=== PATIENT | female | born 1965 | race Caucasian/White ===

== ENCOUNTER 2020-02-11 06:36 | Inpatient (IN) | payer OTHER, SELFPAY ==
[2020-02-11] VITALS (68 sets, daily range): BP systolic 108–215; BP diastolic 69–121; PULSE 58–105; RESP 13–31; TEMP 36.7–36.8; O2SAT 94–100; BMI 54.8
--- NOTE | 2020-02-11 06:44 | XACV_ITS ---
Ht: 165 cm Wt: 131 kg BSA: 2.52 m2 Gender: Female : 1965 Any Known Allergies: Asprin Exam Priority: Routine Procedure(s): Procedure Description: Diagnostic procedure Procedure Description: Left Heart Catheterization Procedure Description: Right Heart Catheterization Procedure Description: Primary percutaneous coronary intervention of mid RCA Diagnostic Cath Status: Emergency Diagnostic Findings * LM has minor luminal irregularities. * CX has 0% stenosis. It gives rise to a large OM branch which has no significant stenosis.. * LAD arises from left main artery. pLAD: Mild 20% stenosis, KALEB: 3 flow. It bifurcates into a dual LAD system with medium- sized vessels. Luminal irregularities are noted.. * RCA arises from right coronary cusp. It is a large sized vessel. Mid Right Coronary Artery: Severe 80% ulcerated stenosis, KALEB: 2 flow. This is the culprit vessel for ST elevation AL.. * Ramus intermedius artery: It is a medium sized vessel. No significant stenosis is noted.. * Coronary angiography shows right dominance. PCI Status: Emergency PCI Indication: STEMI - Immediate PCI for STEMI Interventional Findings * IV heparin was administered to maintain an ACT above 250 seconds. We engaged RCA using 6 Upper Sorbian JR4 guide catheter. Using a 0.014 cougar guidewire we crossed the mid RCA ulcerated lesion and parked the wire in PDA. Mid RCA stenosis was predilated using a 3.0 x 15 mm semicompliant balloon. This was followed by placement of 4.0 x 18 mm resolute Stephen drug-eluting stent. We postdilated the stent using 4.5 x 8 mm NC balloon. At this time final angiogram was performed which showed excellent stent expansion, no residual stenosis and KALEB-3 flow. Hemostasis was obtained using TR band. Guidewire and guide catheter were removed. Patient left the Society Reporter in stable condition.. * Mid Right Coronary Artery: 80% stenosis treated with TREK 3.00X15 RX BALLOON, YULIET Bass STEPHEN 4.0X18 RADHA, and YULIET MCINTYRE EUPHORA RX [id number] BALLOON. 0% residual stenosis, KALEB: 3 flow. Conclusions 1. There is severe coronary artery disease with ulcerated mid RCA lesion that was culprit for inferior ST elevation AL.. 2. Mid Right Coronary Artery was treated with two Balloon and Drug Eluting Stent. Recommendations * Admit to CSU. * Continue aspirin and Plavix for at least 1 year. * High intensity statin therapy. * Beta-keily and lisinopril. * Order echocardiogram. Interventional RX Recommendation: PCI w/o planned CABG Diagnostic RX Recommendation: PCI w/o planned CABG Anticoagulation: Heparin Pressures Phase:Rest AO : 145 / 86 ( 111 ) @ 1:00:00 AM 143 / 80 ( 106 ) @ 1:05:00 AM 151 / 78 ( 108 ) @ 1:17:00 AM / ( -41 ) @ 2:23:00 AM Clinical Evaluation EBL: 5mL-10mL Procedural Details Pre-Procedure Time Out. Identified patient by full name and date of as verbalized by the patient/guarantor. Does the consent match the physician's order: Yes. Accurate & Complete Informed Consent: Yes. Inpatient/Outpatient History & Physical on Chart: Yes. If H&P is completed, is and addenduem needed: N/A Emergent; Informed Consent not obtained due to time critical life threat; If yes, is the addendum complete: N/A Emergent; Informed Consent not obtained due to time critical life threat. Relevant Radiology Images available: N/A Emergent; Informed Consent not obtained due to time critical life threat. Pre-op teaching completed and patient verbalized understanding. The risks, benefits, and alternatives of sedation and/or procedure were discussed by physician. The patient agrees to continue. Procedure started. Correct patient, site and procedure confirmed by cath team. Current diagnosis: STEMI. PERRLA. Strong, equal hand sieve repairer bilaterally. Lungs clear x 5 lobes. Society Reporter Indications: ACS <= 24 hours. Chest Pain Symptom Assessment: Typical Angina Symptoms. IV Site on Arrival: 20 gauge in the right hand. IV Fluids: 0.9% NaCl at KVO. 0 mL infused prior to photonic laboratory technician. Oxygen started at 2liters/min via nasal canula. right groin was prepped with chloroprep then draped in the usual sterile fashion. right radial was prepped with chloroprep then draped in the usual sterile fashion. IV Site on Arrival: 20 gauge in the left forearm. Baseline sample Acquired. HR: 60 BPM. Physician notified. Equipment: 5F - Radial. Cardiac Cath Pack. ACIST Manifold Kit Model BT 2000. Heparinized Saline (2 units/mL), 1000 mL bag. Physician arrived. Physician scrubbed in. Immediate Pre-Procedure Time Out. Correct Patient: Yes; Correct Procedure: Yes; Correct Site: Yes; Correct Patient Position: Yes; Correct Supplies: Yes; Dried Flammable Prep: Yes; Blood Products Available: N/A Emergent; Informed Consent not obtained due to time critical life threat;. Lidocaine 1% infiltrated to the right radial. Arterial access obtained. A 5 welsh TIG catheter in over wire. ERIK Cooper was relieved by Lorin Scott RRT as monitoring person. Multiple views taken of right coronary artery. Catheter redirected to the LCA. Multiple views taken of left coronary artery. Catheter removed over the exchange wire. Inventory is CRD 6FR JR 4 GUIDE 100cm. 6 welsh JR 4 guide catheter was inserted over the wire. Man guidewire was advanced through the guide catheter to lesion in the mid RCA. Inflation number : 1 A AB TREK 3.00X15 RX BALLOON was prepped and advanced across the Mid RCA , then inflated to 12 KRISS for 0:24 seconds. Balloon out. Inflation Number : 2 A YULIET R STEPHEN 4.0X18 RADHA -Lot Number# [id number] exp date 10/10/2021 was prepped and advanced across the Mid RCA. The stent was deployed at 14 KRISS for 0:25 seconds. Stent balloon out over wire. Results checked. Inflation number : 3 A YULIET NC EUPHORA RX [id number] BALLOON was prepped and advanced across the Mid RCA , then inflated to 12 KRISS for 0:10 seconds. Inflation number: 4 The MDSebastián NC EUPHORA RX [id number] BALLOON was reinflated across the Mid RCA, to 12 KRISS for 0:14 seconds. Balloon out. Results checked. Wire out. Guide catheter out. ACT drawn. Results 220 seconds. Therapeutic limits - pre-heparin administration 90-150 seconds and monitoring heparin during a vascular procedure >250 seconds. Physician scrubbed out. A TR Band was successful obtaining hemostatsis at the Right Radial artery insertion site. TR band placed. Hemostasis obtained. Post Procedure: Pulses reassessed and unchanged. PERRLA. Strong, equal hand sieve repairer bilaterally. No VTE prophylaxis required. Contrast type used: Omnipaque 300 mgI/mL, 500 mL bottle. [facility] Clinical Fraility Score: 2: Well. PCI Indication: STEMI. Total IV fluids: 100 mL. Post-op diagnosis: stemi. Complications: none. Medication's Wasted: Lidocaine 1% = 18 mL. Medication's Wasted: Nitro = 49.8 mg. Medication's Wasted: Heparin = 2000 mg. Estimated blood loss: 5mL-10mL. Room assigned but unavailable at this time, It is in the procees of cleaning. Patient aware and kept comfortable and monitored during transition. Vital chart was stopped. Procedure completed. Patient transferred by wheelchair to 1st floor. Access Site Site: Right Radial artery Sheath Size: 6 Fr Hemostasis Method: TR Band Hemostasis Success: Successful Procedure Medications Start: 6:51 AM Stop: 6:51 AM Medication: Versed Amount: 1 mg Route: I.V. Start: 6:51 AM Stop: 6:51 AM Medication: Fentanyl Amount: 50 mcg Start: 6:55 AM Stop: 6:55 AM Medication: Nitrogylcerin Amount: 200 mcg Route: I.A. Start: 7:05 AM Stop: 7:05 AM Medication: Heparin Amount: 8000 units Route: I.V. Start: 7:07 AM Stop: 7:07 AM Medication: Versed Amount: 1 mg Route: I.V. Start: 7:07 AM Stop: 7:07 AM Medication: Fentanyl Amount: 50 mcg Route: I.V. Start: 7:28 AM Stop: 7:28 AM Medication: Heparin Amount: 1000 units Route: I.V. I, the attending physician, have reviewed and verified all procedure medications. Yes, all medications given per verbal order History/Risk Factors Hypertension: No Dyslipidemia: No Peripheral Arterial Disease (PAD): No Myocardial Infarction (AL): No Obesity: Yes Renal Disease: No Prior Interventions PCI: No CABG: No Valve Surgery: No Report Signatures Finalized by Jamin Toscano MD on 02/11/2020 12:22 PM
--- NOTE | 2020-02-11 07:01 | W.ED.CHESTPA ---
HPI - Chest Pain General: Chief Complaint: Chest Pain Stated Complaint: stemi Time Seen by Provider: 02/11/20 06:43 History of Present Illness: HPI narrative: Patient was a STEMI transfer from [place]. Arrived here all the preparatory work had been done been given heparin and Plavix. Nursing staff is sent to the patient he was in the ER very briefly I did not see the patient. Dr. Kelly had been called by nursing [place] staff and had excepted was taken directly to the Photograph Retoucher after extremely brief stop here in the emergency room. Course Vital Signs: Vital signs: Vital Signs Temperature 98.2 F 02/11/20 06:41 Pulse Rate 105 H 02/11/20 06:49 Respiratory Rate 18 02/11/20 06:49 Blood Pressure 148/104 02/11/20 06:49 Pulse Oximetry 99 02/11/20 06:49 Coding Level of Care Code ED Tank Builder And Erector for Hayes Cardenas
--- NOTE | 2020-02-11 07:42 | XRR_ITS ---
PROCEDURE INFORMATION: Exam: XR Chest, 1 View Exam date and time: 02/11/2020 9:28 AM Age: 55 years old Clinical indication: Chest pain; Additional info: Post stemi TECHNIQUE: Imaging protocol: XR of the chest Views: 1 view. COMPARISON: CR Chest 1 [place] [id number] 07/25/2013 7:45 PM FINDINGS: Lungs: See Pleural space finding. Pleural space: Subtle atelectasis left costophrenic angle. Lungs are otherwise well aerated. Heart/Mediastinum: Unremarkable. No cardiomegaly. Bones/joints: Unremarkable. XR/XR chest 1V [id number] IMPRESSION: Subtle atelectasis left costophrenic angle. Lungs are otherwise well aerated.
--- NOTE | 2020-02-11 07:48 | USCV_ITS ---
Aubrie Seay Age: 55 Gender: F : 1965 Exam Date: 02/11/2020 09:40 Ordering Phys: Jamin Toscano M.D ([email or web address]) Technologist: Yanni Ramey [place] [facility] [place] Indication: POST STEMI BP: 160 / 84 HR: 62 Rhythm: Sinus Technical Quality: Suboptimal MEASUREMENTS (Male / Female) Normal Values 2D ECHO LV Diastolic Diameter PLAX 3.2 cm 4.2 - 5.9 / 3.9 - 5.3 cm LV Systolic Diameter PLAX 2.2 cm LV Chamber Size 3.9 cm IVS Diastolic Thickness 1.8 cm 0.6 - 1.0 / 0.6 - 0.9 cm IVS Systolic Thickness 1.7 cm LVPW Diastolic Thickness 0.7 cm 0.6 - 1.0 / 0.6 - 0.9 cm LVPW Systolic Thickness 1.0 cm RV Chamber Size 3.1 cm LVOT Diameter 2.0 cm LV Ejection Fraction 2D Teich 57.7 % LA Diameter 3.7 cm LA Width 2.4 cm LA Height 5.1 cm RA Width 3.2 cm RA Height 4.3 cm Aorta at Sinotubular Diameter 2.0 cm M-MODE LV Diastolic Diameter MM 5.8 cm 4.2 - 5.9 / 3.9 - 5.3 cm LV Systolic Diameter MM 3.7 cm LV Ejection Fraction MM Teich 64.0 % IVS Diastolic Thickness MM 1.1 cm 0.6 - 1.0 / 0.6 - 0.9 cm IVS Systolic Thickness MM 1.4 cm LVPW Diastolic Thickness MM 0.8 cm 0.6 - 1.0 / 0.6 - 0.9 cm LVPW Systolic Thickness MM 1.1 cm Aortic Annulus Diameter 3.1 cm LA Ao Ratio MM 1.2 MV E Point Septal Separation 0.4 cm DOPPLER AV Peak Velocity 124.0 cm/s LVOT Peak Velocity 97.0 cm/s AV Area Cont Eq vti 2.6 cm squared AV Area Cont Eq pk 2.4 cm squared MV Area PHT 5.0 cm squared Mitral E to A Ratio 1.1 MV E' Velocity 43.0 cm/s Mitral E to MV E' Ratio 8.8 Mitral E to LV E' Lateral Ratio 7.4 Mitral E to LV E' Septal Ratio 11.2 TV Peak E Velocity 41.0 cm/s Right Atrial Pressure 3.0 mmHg PV Peak Velocity 74.0 cm/s RV Acceleration Time 0.1 s RV Ejection Time 0.3 s RV AcT/ET 0.4 FINDINGS Left Ventricle Technically limited study. Normal left ventricular size and systolic function. Regional wall motion abnormalities cannot be assessed because of limited visualization. LVEF is 55 to 60%. Normal diastolic filling pattern. Right Ventricle The right ventricle is normal in size and function. Right Atrium The right atrium is normal in size. Left Atrium The left atrium is normal in size. Mitral Valve Structurally normal mitral valve without significant stenosis or prolapse. There is no mitral regurgitation. Aortic Valve Grossly normal. There is no significant aortic stenosis or regurgitation. Tricuspid Valve Grossly normal. No significant stenosis or regurgitation is noted. Insufficient TR jet to calculate RVSP. Pulmonic Valve Not well-visualized. Pericardium Normal pericardium without effusion. Aorta Normal ascending aorta dimension. CONCLUSIONS This is technically limited study LV systolic function is normal. Regional wall motion abnormalities cannot be assessed because of limited visualization. LVEF is 55 to 60%. Normal diastolic function. Valvular structures are not well visualized however no gross abnormalities. No comparison studies are available Jamin Toscano MD (Electronically Signed) Final Date: 11 February 2020 11:56 S
--- NOTE | 2020-02-11 07:50 | ECG_ITS ---
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 Measurements Intervals [place] Rate: 67 P: 134 MT: 147 QRS: -19 QRSD: 100 T: 136 QT: 381 QTc: 405 Interpretive Statements SINUS RHYTHM LOW QRS VOLTAGE IN EXTREMITY LEADS [QRS DEFLECTION < 0.5 mV IN LIMB LEADS] MARKED ST ELEVATION, CONSIDER INFERIOR INJURY [MARKED ST ELEVATION W/O NORMALLY INFLECTED T WAVE IN II/aVF] ACUTE OR No previous ECG available for comparison Electronically Signed On 02-11-2020 18:05:35 E TAILER by Jamin Toscano M.D. [email or web address]
--- NOTE | 2020-02-11 07:56 | PM.HP ---
Providers/Chief Complaint Admitting Physician: Jamin Toscano MD Primary Care Provider: Fabio Solitario Chief Complaint: stemi History of Present Illness Aubrie Seay is a 55 year old female with past medical history of hypertension who presented to [facility] emergency room in [place] with 3 to 4 hours of chest pain. EKG showed ST elevations in inferior leads. Patient was transferred for emergent angiogram and PCI to [facility]. According to patient she does not have any cardiac history. Last night at 1:30 AM she woke up with severe substernal chest pain. She says intensity was 10/10. It felt like pressure radiating to both arms. She went to the emergency room. Over time her chest pain improved however she kept having 5 to 6/10 intensity chest pain. She denies any chest pain in the past. Patient was given aspirin, Plavix and heparin bolus and was transferred to [facility]. We performed emergent coronary angiogram which showed severe ulcerated mid RCA 80% stenosis. This was culprit for inferior ST elevation DE. She underwent successful revascularization with drug-eluting stent x1. According to patient she had minor rash with aspirin in the remote past. She was loaded with aspirin last night and did not develop any reaction. Review of Systems Narrative: CONSTITUTIONAL: No fever chills weight loss or gain or night sweats. [] HEENT: Normocephalic, atraumatic.[] RESPIRATORY: No cough, sputum, hemoptysis or wheezing.[] CARDIOVASCULAR: Has chest pain, no PND, orthopnea, lower extremity edema, presyncope or syncope. [] GI: no nausea vomiting diarrhea. [] REMOTE SENSING TECHNICIAN: No numbness, tingling, weakness or loss of function in any part of the body. [] MUSCULOSKELETAL: No knee or joint pain or rashes. [] Medications/Allergies Home Medications Medication Instructions Recorded Confirmed Last Taken Type amoxicillin-pot clavulanate 1 tab PO Q12H 02/11/20 02/11/20 02/10/20 History chlorhexidine gluconate See Rx Instructions .ROUTE .COMPLEX 02/11/20 02/11/20 02/10/20 History coenzyme Q10 [CoQ-10] 100 mg PO QPM 02/11/20 02/11/20 Unknown History lisinopril-hydrochlorothiazide 1 tab PO QPM 02/11/20 02/11/20 Unknown History nebivolol [Bystolic] 5 mg PO QPM 02/11/20 02/11/20 Unknown History Allergies Allergy/AdvReac Type Severity Reaction Status Date / Time aspirin Allergy ALGY-Rash Verified 02/11/20 06:48 PFSH Acute PFSH: Medical History Hypertension Surgical History H/O total hysterectomy Family History Father CAD (coronary artery disease) Social History Smoking and tobacco status: never smoked Vitals/I&O/Wt Last Vital Signs Temp 98.2 F 02/11/20 06:41 Pulse 105 H 02/11/20 06:49 Resp 18 02/11/20 06:49 BP 148/104 02/11/20 06:49 Pulse Ox 99 02/11/20 06:49 Weight last 48 hrs Weight 340 lb Physical Exam Narrative: EXAM NARRATIVE: GENERAL: Patient is alert, awake and oriented x3. [] NECK: No jugular vein distension. [] HEENT: No cyanosis. No icterus. No pallor. [] HEART: Regular S1 and S2. No murmur, rub or gallop. [] LUNGS: Clear to auscultate bilaterally. [] ABDOMEN: Soft, nontender and nondistended. Positive bowel sounds. No guarding, rebound or tenderness. [] CENTRAL NERVOUS SYSTEM: Grossly nonfocal. [] EXTREMITIES: Lower extremities with no edema bilaterally. Pulses palpable in the lower extremities, both dorsalis pedis and posterior tibial. [] A&P Assessment and plan (1) ST elevation DE (STEMI): Status: Acute (2) Hypertension: Status: Acute Patient had acute inferior wall ST elevation DE. She underwent successful revascularization of mid RCA ulcerated stenosis with a drug-eluting times stent x1. Admit to CSU. Aspirin and Plavix for at least 1 year. Patient has documented allergy to aspirin which she mentions caused her to have minor rash in remote past. She had aspirin last night and has not developed any reaction to it. We will monitor her as inpatient. Order echocardiogram High intensity statin therapy Lisinopril and beta-keily. Attestations Medical Necessity Statement*: Care expected to cross 2 midnights. Patient presented with acute inferior wall ST elevation DE status post revascularization. Coding Level of Care Code Acute Junior Mechanical Engineer for Hayse Cardenas Diagnoses ST elevation DE (STEMI) I21.3 Hypertension I10
--- NOTE | 2020-02-11 08:30 | SUR.PHASEI ---
TO PHASE 1 Patient to CPRU pending CSU bed availablity. Assessments per flowsheets. Informed to call for needs.
--- NOTE | 2020-02-11 08:31 | SUR.PHASEI ---
CALL LIGHT Call light placed within reach.
--- NOTE | 2020-02-11 08:56 | SUR.PHASEI ---
IV heplocked at this time pending floor transfer.
[2020-02-11 09:08] LABS: Partial Thromboplastin Time 89.7 SECONDS (23.9-36.7)
--- NOTE | 2020-02-11 09:10 | SUR.PHASEI ---
Transfer Patient transferred to room 105 via wheel chair. Report to Naveen RN. No change in patient condition at this time.
--- NOTE | 2020-02-11 09:15 | PC.NURSE ---
Received pt from sugar laboratory assistant Pt is alert, oriented, not in distress. Reports of chest pain rated at 2/10 pain scale. TR band intact on right wrist with small bruise above the band. No hematoma, swelling, bleeding. radial pulse is palpable +3. Activity restrictions provided to pt regarding no lifting, pushing, pulling using right arm. call light within reach.
--- NOTE | 2020-02-11 11:05 | PC.NURSE ---
called pharmacy since pt is not in the pyxis-cannot pull her morning meds. will follow-up.
--- NOTE | 2020-02-11 11:35 | ECG_ITS ---
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 Measurements Intervals [place] Rate: 66 P: 9 ME: 154 QRS: -31 QRSD: 110 T: 47 QT: 406 QTc: 427 Interpretive Statements SINUS RHYTHM MARKED LEFT AXIS DEVIATION [QRS AXIS < -30] PATTERN CONSISTENT WITH PULMONARY DISEASE Compared to ECG 02/11/2020 06:40:04 Left-axis deviation now present Myocardial infarct finding no longer present ST (T wave) deviation still present Electronically Signed On 02-11-2020 17:59:50 REJOINER by Jamin Toscano M.D. [id number]
[2020-02-11] MEDS: lisinopril 10 mg Tablet PO (12:00)
[2020-02-11] MEDS: metoprolol tartrate 25 mg Tablet PO (12:00)
[2020-02-11] MEDS: atorvastatin 40 mg Tablet 80 MG PO (12:00)
--- NOTE | 2020-02-11 12:03 | PC.CHAP ---
Pastoral Care Encounter/Spiritual Assessment Type of Contact [] Declined pigskin trimmer visit [] Patient/Family/Request visit [] Outpatient visit [] Follow-up visit [] Physician referral [] Code/Alert [x] Routine visit [] Staff referral [] Actively dying [] Patient sleeping [] Family support [] [] Out of room [] Palliative care [] [] Receiving care in room [] Pre-surgical visit [] Trauma [] Long length of stay [] ICU visit [] Other: Relational/Emotional Strength [] Patient feels connected with others/family/visitors/staff [] Distress [] Loneliness/isolation [] Abandonment Spirituality of Patient [] Person of Mariella [] Attends Oriental Orthodox of their Mariella [] Believes in Prayer [] Reads Bible or Zoroastrianism materials [] There are Spiritual issues to be addressed Service Inspector Interventions [] Prayer [] Active listening [] Non-anxious presence [] Spiritual/emotional support [] Crisis/trauma care [] Spiritual counseling [] Bereavement support [] Provided bereavement packet [] Provided Bible/devotional materials [] Provided toy/stuffed animal, coloring book to patient or family member [] Provided Communion [] Anointing/Sublimity [] Salvation [] Completed spiritual assessment [] Other: Impact on Illness or Injury [] Angry [] Fearful [] Anxious [] Often cries [] Exhaustion [] Unable to work [] Unable to attend yazidism [] Unable to walk/stand [] Unable to read [] Unable to drive [] Unable to eat/drink [] Unable to sleep [] Unable to be with family [] Patient intubated [] Other: Summary Time spent with patient
--- NOTE | 2020-02-11 13:00 | PC.NURSE ---
Increasing sytolic and diastolic BP-170/110 Dr Toscano notified via telephone. Received RBTO to give hydralazine 10 mg IVP once and Amlodipine 10 mg now. Increase Metoprolol 50 mg start tonight.
--- NOTE | 2020-02-11 13:00 | PC.NURSE ---
Increasing sytolic and diastolic BP-170/110 Received RBTO to give hydralazine 10 mg IVP once and Amlodipine 10 mg now. Increase Metoprolol 50 mg start tonight.
--- NOTE | 2020-02-11 13:00 | PC.NURSE ---
Pt has an episode of 13 beat of vtach. pt is asleep and eating her lunch. she had a mild chest pain rated at 2/10 pain scale. EKG taken without any changes. Dr. Toscano notified of the event.
[2020-02-11 13:39] LABS: Basophils % 0.4 %; Eosinophils # 0.1 10^3/uL (0.0-0.8); Eosinophils % 0.6 %; Hematocrit 42.8 % (37.0-47.0); Lymphocytes % 18.5 %; Mean Corpuscular HGB Conc 32.7 g/dL (30.0-36.0); Mean Corpuscular Hemoglobin 30.3 pg (28.0-34.0); Mean Corpuscular Volume 92.6 fL (81-99); Mean Platelet Volume 9.4 fL (7.4-10.4); Monocytes # 0.5 10^3/uL (0.2-0.9); Monocytes % 4.8 %; Neutrophils # 7.95 10^3/uL (1.8-7.7); Neutrophils % 75.5 %; Nucleated Red Blood Cells % 0 %; Platelet Count 323 10^3/cmm (130-400); Red Blood Count 4.62 10^6/uL (4.1-5.3); Red Cell Distribution Width 11.9 % (12.1-15.1); White Blood Count 10.5 10^3/uL (4.0-10.0)
[2020-02-11 13:56] LABS: Anion Gap 13.5 (5-19); Blood Urea Nitrogen 22 mg/dL (6-20); Calcium 9.4 mg/dL (8.5-10.5); Carbon Dioxide 27 mmol/L (22-29); Chloride 100 mmol/L (98-107); Glomerular Filtration Rate 46.5 mL/min (90-130); Glucose 114 mg/dL (65-115); Osmolality Calculated 286 mOsm/kg (285-295); Potassium 4.5 mmol/L (3.5-5.1); Sodium 136 mmol/L (136-145)
[2020-02-11] MEDS: amlodipine 10 mg Tablet PO (13:58)
[2020-02-11] MEDS: hyDRALAzine 20 mg/mL INJ 1 mL 10 MG IVP (13:58)
[2020-02-11 14:00] LABS: Troponin T (5th) Once 585 ng/L (0-10)
--- NOTE | 2020-02-11 15:00 | PC.NURSE ---
TR Band removal TR band off. No bleeding, hematoma, swelling. Small bruising noted around wrist area. Radial pulse is palpable +3. Applied dressing to site. Activity restrictions provided to pt regarding no lifting, pulling or pushing using her right arm. pt verbalizes understanding.
--- NOTE | 2020-02-11 17:03 | PC.NURSE ---
Pt up to the bathroom, denies any chest pain at this time. Stated she feels tired. Will keep monitoring.
[2020-02-11] MEDS: aspirin 81 mg EC Tablet PO (21:14)
[2020-02-11] MEDS: metoprolol tartrate 25 mg Tablet 50 MG PO (21:14)
[2020-02-11] MEDS: acetaminophen 325 mg Tablet 650 MG PO (21:20)
[2020-02-12] VITALS (7 sets, daily range): BP systolic 100–117; BP diastolic 69–81; PULSE 65–81; RESP 10–25; TEMP 36.6–36.8; O2SAT 94–100
[2020-02-12] MEDS: clopidogrel 75 mg Tablet PO ×2 (06:34→09:19)
[2020-02-12 07:33] LABS: Basophils # 0.1 10^3/uL (0.0-0.1); Basophils % 0.5 %; Eosinophils # 0.2 10^3/uL (0.0-0.8); Eosinophils % 1.8 %; Hematocrit 42.7 % (37.0-47.0); Hemoglobin 13.8 g/dL (11.5-15.3); Lymphocytes % 18.3 %; Mean Corpuscular HGB Conc 32.3 g/dL (30.0-36.0); Mean Corpuscular Volume 92.8 fL (81-99); Mean Platelet Volume 9.3 fL (7.4-10.4); Monocytes # 0.7 10^3/uL (0.2-0.9); Neutrophils % 73.1 %; Nucleated Red Blood Cells % 0 %; Platelet Count 337 10^3/cmm (130-400); White Blood Count 11.1 10^3/uL (4.0-10.0)
[2020-02-12 08:01] LABS: Blood Urea Nitrogen 21 mg/dL (6-20); Calcium 9.2 mg/dL (8.5-10.5); Carbon Dioxide 27 mmol/L (22-29); Chloride 99 mmol/L (98-107); Glomerular Filtration Rate 46.5 mL/min (90-130); Glucose 107 mg/dL (65-115); Osmolality Calculated 287 mOsm/kg (285-295); Sodium 137 mmol/L (136-145)
[2020-02-12] MEDS: metoprolol tartrate 25 mg Tablet 50 MG PO ×2 (09:19→20:36)
[2020-02-12] MEDS: lisinopril 10 mg Tablet PO (09:31)
[2020-02-12] MEDS: aspirin 81 mg EC Tablet PO (10:32)
--- NOTE | 2020-02-12 17:28 | P.PN_ITS ---
Subjective Subjective: Interval history: Patient is doing well. No complaints of chest pain, shortness of breath or palpitations. Radial access site is normal without evidence of hematoma. Blood pressure has improved. Vitals/I&O/Wt Last Vital Signs Temp 98.2 F 02/12/20 03:45 Pulse 74 02/12/20 16:00 Resp 10 L 02/12/20 16:00 BP 117/81 02/12/20 16:00 Pulse Ox 94 02/12/20 14:22 02/12/20 02/12/20 02/12/20 06:59 14:59 22:59 Intake Total 582 / 582 Balance 582 / 582 Weight last 48 hrs Weight 340 lb Physical Exam Narrative: EXAM NARRATIVE: GENERAL: Patient is alert, awake and oriented x3. [] NECK: No jugular vein distension. [] HEENT: No cyanosis. No icterus. No pallor. [] HEART: Regular S1 and S2. No murmur, rub or gallop. [] LUNGS: Clear to auscultate bilaterally. [] ABDOMEN: Soft, nontender and nondistended. Positive bowel sounds. No guarding, rebound or tenderness. [] CENTRAL NERVOUS SYSTEM: Grossly nonfocal. [] EXTREMITIES: Lower extremities with no edema bilaterally. Pulses palpable in the lower extremities, both dorsalis pedis and posterior tibial. [] Data : 02/12/20 07:15 02/12/20 07:15 A&P Assessment and plan (1) ST elevation [place] (STEMI): Status: Acute (2) Hypertension: Status: Acute Patient had acute inferior wall ST elevation WA. She underwent successful revascularization of mid RCA ulcerated stenosis with a drug-eluting times stent x1. Aspirin and Plavix for at least 1 year. Patient has documented allergy to aspirin which she mentions caused her to have minor rash in remote past. She has been tolerateing aspirin without any reaction for the last 2 days. ECHO shows grossly normal LV systolic function High intensity statin therapy Lisinopril and beta-keily. Encouraged patient to walk today. If stays stable, likely discharge home tomorrow. Attestations Medical Necessity Statement*: Care expected to cross 2 midnights. Patient had presented with acute ST elevation WA yesterday and underwent successful revascularization with RADHA x 1. 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
--- NOTE | 2020-02-12 20:07 | PC.NURSE ---
Pt had a good day today She took a shower, walk down hallways and sat in the chair with her in room. Pt stated, 'I feel better now than i had for a long time. Pt denies any chest pain or shortness of breath.
[2020-02-12] MEDS: atorvastatin 40 mg Tablet 80 MG PO (20:36)
[2020-02-13 00:31] VITALS: BP 108/68; PULSE 77; RESP 19; TEMP 36.7; O2SAT 95
[2020-02-13 05:09] VITALS: BP 93/66; PULSE 80; RESP 23; TEMP 36.6; O2SAT 95
[2020-02-13 06:00] VITALS: PULSE 74
[2020-02-13 08:00] VITALS: BP 100/68; PULSE 87; RESP 23; TEMP 36.7
[2020-02-13 08:09] VITALS: TEMP 36.7
--- NOTE | 2020-02-13 09:09 | P.DS_ITS ---
Discharge Providers Date of Admission: 02/11/20 13:49 Date of Discharge: February 13, 2020 Attending Provider at Admission: Jamin Toscano M.D Attending Provider at Discharge: Jamin Toscano MD Primary Care Provider: Fabio Solitario Diagnoses at Discharge Discharge Diagnosis (1) ST elevation [place] (STEMI): Status: Acute (2) Hypertension: Status: Acute Reason for Visit Reason for Visit: stemi Hospital Course Hospital Course 55-year-old woman with past medical history of hypertension presented to [facility] with severe chest pain and ST elevations in inferior leads. He was transferred for emergent cath and revascularization. She had mid RCA severe ulcerated lesion. This was revascularized using drug-eluting stent x1. Was started on aspirin and Plavix. Her LV systolic function was preserved. She did mention about aspirin allergy in remote past where she had minor rash. However she stayed in hospital for 2 days and did not have any reaction from aspirin. Her stay in the hospital was uneventful and she was feeling well on the day of discharge. Physical Exam Narrative: EXAM NARRATIVE: GENERAL: Patient is alert, awake and oriented x3. [] NECK: No jugular vein distension. [] HEENT: No cyanosis. No icterus. No pallor. [] HEART: Regular S1 and S2. No murmur, rub or gallop. [] LUNGS: Clear to auscultate bilaterally. [] ABDOMEN: Soft, nontender and nondistended. Positive bowel sounds. No guarding, rebound or tenderness. [] CENTRAL NERVOUS SYSTEM: Grossly nonfocal. [] EXTREMITIES: Lower extremities with no edema bilaterally. Pulses palpable in the lower extremities, both dorsalis pedis and posterior tibial. 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 Stat Exams 02/11/20 06:44 Completed XR chest 1V [id number] Routine Exams 02/11/20 07:42 Completed CV echo complete* [id number] Urgent Ultrasound 02/11/20 07:48 Completed Vitals: Last Vital Signs Temp 98.1 F 02/13/20 08:09 Pulse 87 02/13/20 08:00 Resp 23 H 02/13/20 08:00 BP 100/68 02/13/20 08:00 Pulse Ox 95 02/13/20 05:09 Discharge Plan Discharge Patient Disposition: Home Condition: Stable Prescriptions: New atorvastatin 40 mg Tablet 80 mg PO BEDTIME Qty: 90 RF: 3 clopidogrel 75 mg Tablet 75 mg PO DAILY Qty: 90 RF: 0 aspirin 81 mg Tablet,Delayed Release (Dr/Ec) 81 mg PO DAILY Qty: 90 RF: 3 lisinopril 5 mg Tablet 5 mg PO DAILY Qty: 90 RF: 3 metoprolol tartrate 25 mg Tablet 25 mg PO BID@0900,2100 Qty: 120 RF: 3 Continued CoQ-10 100 mg Capsule 100 mg PO QPM RF: 0 chlorhexidine gluconate 0.12 % mouthwash See Rx Instructions .ROUTE .COMPLEX RF: 0 Discontinued lisinopril-hydrochlorothiazide 10-12.5 mg Tablet 1 tab PO QPM RF: 0 amoxicillin-pot clavulanate 500-125 mg tablet 1 tab PO Q12H RF: 0 Bystolic 5 mg Tablet 5 mg PO QPM RF: 0 Discharge Orders: Discharge Order (Routine); Ordered 02/13/20 Ordered By: Jamin Toscano Referrals: Fabio Solitario [Primary Care Provider] - (Please call patient at home with a hospital follow up appointment in 1 week. Faxed a copy to [facility] Dr. Solitario.) Jamin Toscano M.D [Physician] - 1 month (Heart care services will be contacting you with your appointment to see Dr. Toscano in 1 month. If you have not heard from them by tomorrow morning, please call to schedule an appointment. Thank you.) Cecilia Gallagher FNP [Nurse Practitioner] - 7-10 days (Heart care services will be contacting you with your appointment to see [facility] in 7-10 days. If you have not heard from them by tomorrow morning, please call to schedule an appointment. Thank you.) Discharge Diet: Cardiac Discharge Activity: Increase activity as tolerated Patient Instructions: Metoprolol (By mouth), Lisinopril (By mouth), Aspirin (By mouth), Atorvastatin (By mouth), Clopidogrel (By mouth), Left Heart Catheterization (DC), Post Angiogram Home Care Instructions Activity Restrictions/Additional Instructions: Please do not lift more than 5 pounds of weight for the next 5 days. Discharge Attestations Time Spent in Discharge Care*: greater than 30 min Specific Discharge Activities: educating patient, documenting/other paperwork and evaluating patient/reviewing data Status at Discharge: Cognitive status at discharge: cognitively intact , Behavioral status at discharge: cooperative , Functional status at discharge: independent ambulation Overall status at discharge: patient is back to baseline Quality Metrics Clinical Quality Measures During this hospital stay, did patient experience: None Coding Level of Care Code Acute Scanner Operator for Hayes Cardenas Diagnoses ST elevation NJ (STEMI) I21.3 Hypertension I10
[2020-02-13] MEDS: lisinopril 5 mg Tablet PO (09:10)
[2020-02-13] MEDS: clopidogrel 75 mg Tablet PO (09:10)
[2020-02-13] MEDS: metoprolol tartrate 25 mg Tablet PO (09:10)
[2020-02-13] MEDS: aspirin 81 mg EC Tablet PO (09:10)
[2020-02-13 11:11] VITALS: BP 104/68; PULSE 71; RESP 19; TEMP 36.7; O2SAT 96
--- NOTE | 2020-02-13 11:47 | PC.NURSE ---
Discharge Patient was discharged at 1145 accompanied by and ambulated to personal vehicle. Discharge papers in hand.
== END 2020-02-13 11:45 | disposition home or self-care (01) | DRG 247 ==
LOC: ER 07:23 → CSU 13:51 → ER 02-13 08:19
PROVIDERS: Admitting Provider Internal Medicine; Emergency Provider Family Medicine; PCP Physician Assistant Medical; Visit Provider Family Medicine
PROC: B2161ZZ Fluoroscopy of Right and Left Heart using Low Osmolar Contrast (ICD-10-PCS; principal; 2020-02-11 06:00)
PROC: B2161ZZ Fluoroscopy of Right and Left Heart using Low Osmolar Contrast (ICD-10-PCS; 2020-02-11 06:00)
DX: I21.19 ST elevation (STEMI) myocardial infarction involving other coronary artery of inferior wall (principal); I25.10 Atherosclerotic heart disease of native coronary artery without angina pectoris; I10 Essential (primary) hypertension
CPT/HCPCS: 12345; 36415; 71045; 80048; 84484; 85025; 85347; 85730; 93005; 93306; 93454; C1725; C1769; C1874; C1887; C1894; C9606; J0360; J1644; J2250; J3010; J3490; J7030; Q9967

== ENCOUNTER 2022-02-06 08:28 | Outpatient (CLI) | payer OTHER, SELFPAY ==
--- NOTE | 2022-02-06 08:38 | US_ITS ---
WS: [id number] Left breast ultrasound, 02/06/2022 Clinical Data: LT BREAST LUMP Comparison: Mammogram, 02/06/2022 Findings: In the left breast at the 9:00 position 6 cm from the nipple there is a superficial lesion which has a mixed echotexture. This lesion measures 0.52 x 0.87 x 0.98 cm and has a well-defined border. No purvi cifications are associated with this lesion. This lesion may well represent a small skin infection, h ematoma, or a soft tissue nodule. US/US breast LT limited* [id number] Impression: 1. Superficial subcutaneous nodule in the 9:00 position in the left breast with mixed echotexture. 2. Recommend annual screening mammograms. BIRADS: 2-Benign FOLLOW UP: See Report
--- NOTE | 2022-02-06 08:38 | MM_ITS ---
WS: [id number] Bilateral diagnostic 3D tomosynthesis digital mammogram, 02/06/2022 Clinical Data: LEFT BREAST LUMP Comparison: None. Findings: The right breast is normal. The left breast there is a superficial nodule in the medial aspect of lef t breast adjacent to the skin surface. This is in the neighborhood of the marker placed on the patien t's left breast. Both breasts show fat replacement. There are no spiculated masses or clustered calci fications. There are lymph nodes in both axilla. MM/[place] [id number] Impression: 1. Superficial nodule in medial left breast at approximately the 9:00 position. 2. Left breast ultrasound will be performed. BIRADS: 2-Benign FOLLOW UP: 1 Year Follow-up The CAD apparel stock checker was used.
== END 2022-02-06 08:29 | disposition home or self-care (01) ==
PROVIDERS: PCP Registered Nurse; Visit Provider Registered Nurse
DX: N63.25 Unspecified lump in the left breast, overlapping quadrants (principal)
CPT/HCPCS: 76642; 77062; G0279

== ENCOUNTER → 2023-08-25 08:55 | Outpatient (CLI) | payer OTHER, SELFPAY ==
--- NOTE | 2023-08-25 09:00 | USCV_ITS ---
Aubrie Seay Age: 58 Gender: F : 1965 Exam Date: 08/25/2023 09:23 Ordering Phys: Romero Easton MD ([email or web address]) Technologist: CT Exam Location: [facility] [place] Indication: CP BP: 146 / 76 HR: 52 Rhythm: Sinus Technical Quality: Adequate MEASUREMENTS (Male / Female) Normal Values 2D ECHO LVOT Diameter 2.0 cm LV Ejection Fraction MOD 4C 66.5 % LV Ejection Fraction MOD 2C 68.8 % LV Ejection Fraction 2C AL 67.6 % LA Diameter 3.4 cm RA Systolic Volume 4C AL 41.7 ml RA Systolic Volume 4C MOD 42.1 ml LA Sys Volume AL 52.2 cm cubed LA Sys Volume Index AL 19.9 cm cubed/m squared Aorta at Sinotubular Diameter 2.2 cm IVC Diameter 1.6 cm M-MODE LA Ao Ratio MM 1.6 AV Cusp Separation MM 2.1 cm DOPPLER AV Peak Velocity 124.0 cm/s LVOT Peak Velocity 102.0 cm/s AV Area Cont Eq vti 2.9 cm squared AV Area Cont Eq pk 2.6 cm squared MV Peak Velocity 104.0 cm/s MV Area PHT 3.2 cm squared Mitral E to A Ratio 1.3 TR Peak Velocity 153.0 cm/s TR Peak Gradient 9.4 mmHg TV Peak E Velocity 63.0 cm/s Right Atrial Pressure 3.0 mmHg Pulmonary Artery Systolic Pressu 12.4 mmHg PV Peak Velocity 99.5 cm/s FINDINGS Left Ventricle Normal left ventricular size, systolic function and wall thickness, with no regional wall motion abnormalities. Normal left ventricular wall thickness. Normal diastolic filling pattern. Left ventricular ejection fraction is estimated at 60 %. Right Ventricle The right ventricle is normal in size and function. Right Atrium The right atrium is normal in size. Left Atrium The left atrium is normal in size. Mitral Valve Structurally normal mitral valve without significant stenosis or prolapse. There is no mitral regurgitation. Aortic Valve Structurally normal aortic valve without significant sclerosis or stenosis. There is no aortic regurgitation. Tricuspid Valve Structurally normal tricuspid valve without significant stenosis or regurgitation. Pulmonary artery systolic pressure is normal. Pulmonic Valve Structurally normal pulmonic valve without significant stenosis. There is no pulmonic regurgitation. Pericardium Normal pericardium without effusion. Aorta Normal ascending aorta dimension. IVC The inferior vena cava appears normal. CONCLUSIONS Normal transthoracic echocardiogram. No change from the previous echo did dictated February 11, 2020 Dr. Ge Ferreira MD (Electronically Signed) Final Date: 25 August 2023 17:35 S
== END | disposition home or self-care (01) ==
LOC: RAD 08:55
PROVIDERS: PCP Registered Nurse; Visit Provider Internal Medicine Cardiovascular Disease
DX: R07.9 Chest pain, unspecified (principal); R06.02 Shortness of breath
CPT/HCPCS: 93306

== ENCOUNTER 2023-11-30 09:05 | Outpatient (CLI) | payer OTHER, SELFPAY ==
--- NOTE | 2023-11-30 | ECG_ITS ---
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 The perfusion scan will be documented separately. DATA: Baseline heart rate was 59 beats per minute. Baseline blood pressure was 143/99 millimeters of mercury. Target heart rate was 161. Maximum heart rate achieved was 92. which was 57% of the predicted target heart rate. Maximum blood pressure was 152/99 millimeters of mercury. The reason for ending the test was completion of the protocol. The patient did not experience any symptoms. ELECTROCARDIOGRAM: BASELINE: Sinus bradycardia. Normal axis. Otherwise, no ST-T changes suggestive of ischemia noted. No arrhythmia noted. EXERCISE: After Lexiscan injection, no ST-T changes suggestive of ischemic noted. No arrhythmia noted. CONCLUSION: Please note due to baseline abnormality of the EKG specificity and sensitivity of the EKG portion of LexiScan MIBI stress test will be low 1. EKG not suggestive of ischemia 2. Lexiscan injection unremarkable. 3. Perfusion scan will be documented separately. Electronically Signed On 12-06-2023 15:06:11 CDT by ROMERO EASTON [email or web address]
[2023-11-30 09:45] VITALS: BMI 49.4
--- NOTE | 2023-11-30 09:54 | NMCV_ITS ---
NM jamaal perf SPECT r/s* [id number] Aubrie Seay Age: 58 Gender: F : 1965 Exam Date: 11/30/2023 09:54 Ordering Phys: oRmero Easton MD ([email or web address]) Technologist: JESSICA Tijerina Exam Location: [facility] Indications: cp STRESS TEST Please see separate stress test report in [facility] for full findings IMAGE PROTOCOL Rest/Stress 1 Dobutamine Day Radiopharmaceutical Dose (mCi) Administration Site Administered by Rest: Tc-99m 9.4 IV JESSICA Tijerina Stress:Tc-99m 32.9 IV JESSICA Tijerina Rest: 11/30/2023 60 Discovery 630 Stress: 11/30/2023 30 Discovery 630 0.4mg Lexiscan. Images obtained in supine and prone position. SPECT RESULTS Technical Quality: Good Raw Data Analysis: Normal Image Corrections: No attenuation or motion correction applied Summed Stress Score: 9 Summed Rest Score: 5 Summed Difference Score: 5 PERFUSION FINDINGS Large area of fixed perfusion defect noted in basal to distal inferior and basal to mid inferolateral wall on both stress and rest images suggestive of old myocardial infarction versus scarring. FUNCTIONAL RESULTS (calculated via Gated SPECT) Stress Image LV EF (%): 74 Stress EDV (mL):82 TID: 1.11 Stress ESV (mL):21 FUNCTIONAL FINDINGS: There is normal left ventricular systolic function. TID ratio is elevated which could be due to left ventricle hypertrophy/subendocardial ischemia however cannot rule out multivessel coronary artery disease IMPRESSIONS Large area of old myocardial infarction versus scarring noted in basal to distal inferior and basal to mid inferolateral wall without nakia-infarct ischemia. This study is negative for ischemia. EKG segment will be documented separately. Romero Easton MD (Electronically Signed) Final Date: 30 November 2023 15:01 S
[2023-11-30] MEDS: regadenoson 0.4 Mg/5 ml Syringe IVP (11:20)
[2023-11-30 11:27] VITALS: BP 152/89; PULSE 77
== END 2023-11-30 09:06 | disposition home or self-care (01) ==
PROVIDERS: PCP Registered Nurse; Visit Provider Internal Medicine Cardiovascular Disease
DX: R07.9 Chest pain, unspecified (principal); R06.02 Shortness of breath
CPT/HCPCS: 36415; 78452; 93017; 96374; A9500; J2785

== ENCOUNTER 2024-11-28 07:59 | Outpatient (CLI) | payer OTHER, SELFPAY ==
--- NOTE | 2024-11-28 09:15 | USCV_ITS ---
Aubrie Seay Age: 59 Gender: F : 1965 Exam Date: 11/28/2024 08:42 Ordering Phys: Oswaldo Vasquez MD ([email or web address]) Technologist: RAMOS Exam Location: [facility] [place] Indication: SoB BP: 128 / 80 HR: 57 Rhythm: Sinus Technical Quality: Adequate MEASUREMENTS (Male / Female) Normal Values 2D ECHO LV Diastolic Diameter PLAX 4.8 cm 4.2 - 5.9 / 3.9 - 5.3 cm IVS Systolic Thickness 1.3 cm LVPW Systolic Thickness 1.9 cm LVOT Diameter 1.8 cm LV Ejection Fraction 2D Teich 59.2 % LV Ejection Fraction MOD 4C 64.4 % LV Ejection Fraction MOD 2C 58.0 % LV Ejection Fraction 2C AL 59.9 % LA Diameter 3.1 cm RA Systolic Volume 4C AL 40.8 ml RA Systolic Volume 4C MOD 40.1 ml LA Sys Volume AL 64.1 cm cubed LA Sys Volume Index AL 24.4 cm cubed/m squared Aorta at Sinotubular Diameter 2.5 cm M-MODE LA Ao Ratio MM 1.5 AV Cusp Separation MM 1.5 cm DOPPLER AV Peak Velocity 115.0 cm/s LVOT Peak Velocity 106.0 cm/s AV Area Cont Eq vti 1.9 cm squared AV Area Cont Eq pk 2.3 cm squared MV Peak Velocity 101.0 cm/s MV Area PHT 5.5 cm squared Mitral E to A Ratio 1.4 TV Peak Velocity 212.0 cm/s TR Peak Velocity 291.0 cm/s TR Peak Gradient 33.9 mmHg TV Peak E Velocity 79.0 cm/s PV Peak Velocity 79.0 cm/s FINDINGS Left Ventricle Normal left ventricular size, systolic function and wall thickness with no regional wall motion abnormality. Left ventricular ejection fraction is 60%. Normal left ventricular diastolic function. Right Ventricle Normal right ventricular size and systolic function. Right Atrium Normal right atrial size. Left Atrium Normal left atrial size. IA Septum Normal appearance of the interatrial septum. Mitral Valve Normal mitral valve structure. Trace mitral valve regurgitation. Aortic Valve Normal aortic valve structure. No aortic valve stenosis or regurgitation. Tricuspid Valve Normal tricuspid valve structure. No tricuspid valve stenosis or regurgitation. Normal pulmonary pressure. Pulmonic Valve Normal pulmonic valve structure. No pulmonic valve stenosis or regurgitation. Pericardium No pericardial effusion. Aorta Normal diameter of the aortic root and ascending thoracic aorta. IVC Normal IVC diameter. CONCLUSIONS Normal left ventricular size, systolic function and wall thickness with ejection fraction of 60%. Normal right ventricular size and systolic function. No significant valvular abnormalities. Oswaldo Vasquez MD, FACC (Electronically Signed) Final Date: 29 November 2024 13:19 S
== END 2024-11-28 08:00 | disposition home or self-care (01) ==
LOC: RAD 07:59
PROVIDERS: PCP Registered Nurse; Visit Provider Internal Medicine Cardiovascular Disease
DX: R06.02 Shortness of breath (principal)
CPT/HCPCS: 93306